=== PATIENT | male | born 1955 | race African-American/Black ===

== ENCOUNTER 2020-07-20 00:03 | Emergency (ER) | payer MEDICARE, OTHER ==
[~2020-07-20] VITALS: Ht 175.3 cm; Wt 68.0 kg
[2020-07-20 00:05] VITALS: BP 138/79
--- NOTE | 2020-07-20 01:41 | NUR ---
PT DISCHARGED TO ER WAITING ROOM AWAITING BLUEPRINT MAKER IN AM.
--- NOTE | 2020-07-20 11:02 | NUR ---
"SS Consult: SS consult requested for homelessness. The pt. is a 65-year old Black male. SW met with pt. bedside. The pt. appears unkempt and is alert & oriented x 4. The pt. is pleasant and remained calm & cooperative throughout interview. Patent denies SI/HI and denies hallucinations. Patients thought process is WNL. Per pt. he has been diagnosed with Schizoaffective Disorder and is ALSO manic Depressive and is currently not on medication. Patient stated that he has been experiencing homelessness since February 2020. Patient stated that he last resided at [facility] [[address] [place] [address] ; ]. Per patients request SW called [facility] and asked if pt. could be accepted back to facility. Per Intake they will consult and give SW a call back. Patient is wearing a bracelet that provides his brother, Hugo Tilley [phone] information and also states patient has dementia and may be come agitated. Pt. stated that his sister, Annel Tilley [phone] is his payee and requested se be called for his placement at a board & care. SW called Annel and provided collateral information. Per Annel patient was residing at [facility] [employer] [employer] [facility] [[address] [place] [address]] for about 10 years. However, as of 02/05/2020 the pt. left as he expressed not wanting to live there any longer, per Annel. Krunal confirmed that she is his payee and is has been difficult to place this pt. in permanent housing as pt. leaves every facility he is in temporarily or refuses help. Per Kathie th pt. does not have Dementia bu he does have aHx. of mental health. Annel requested that this pt. be seen by crisis for possible hold. MARLEN informed Annel that the pt. does not meet criteria for 5150. MARLEN consulted with SS Director, Catrachita Mcgee who also confirmed pt. does not meet criteria. Annel updated and she was agreeable. Plan: SW provided patient with longterm placement at [facility] [[address] [address]; [phone]] and patient is agreeable. Patient provided with bus pass, hot meal and clothing as needed. Patient signed homeless waiver. SW provided address of longterm to pt.s sister and informed her of D/C plan and she was agreeable. MARLEN provided patient with the following homeless resources and patient receptive: Substance Abuse resources provided included: [facility] Substance Abuse Self-Helpline ([facility]) ; [facility] [address] [facility]. [place] [address] ; [facility] [place] [address] [facility] [address] ; [facility] [address] [facility] [place] [address] ; [facility] [address] [facility] [id number] ; [facility] [address] [facility] [address] ; [facility] [address] [facility] [id number] ; [facility] Substance Abuse Helpline([facility] ; [facility] ; [facility] [place]; [facility] [place]; [facility] [place]; [place] [facility]; [facility] [place] [facility]; [facility] [place]; [facility], [facility]. [place]; Alcoholics Anonymous -SFV; [place]-Xrme-Zwmdgbv ; Marijuana Anonymous -[facility]V; Narcotics Anonymous www.na.org; Year-round shelters: [facility] [address] [place] [address] ; [facility] [place] [address] [place] [place] [address]; [facility] [address] [facility] [address] Winter Shelters: Shiramercedes Wang Emeli Provider: Milind of [place] Address: [address], [address] # of Beds: 47 Population Served: [facility] 6 | [facility] Jolie Nguyen [place] Provider: [facility] Address: [address], [address] # of Beds: 66 Population Served: [facility] [place] Provider: First to Serve Address: [address] [facility], [address] # of Beds: 56 Population Served: [facility] Mikhail [place] Provider: [facility] Address: [address] [place] [address], [address] # of Beds: 49 Population Served: [facility] 8 | [facility] Provider: First to Serve Address: [address] [facility], [address] # of Beds: 37 Population Served: [facility] Hygiene: [facility]: [address] [facility] ; [place] [facility] [address] [facility] ; [facility] [address] [facility] . Food Resources: [place] [facility] at [facility]- [address] [facility]; Meet Each Need with [place]ign[facility] ([facility]) [address] [place]; [facility] [address] [facility]; [facility] [address] [facility]. Mental Health resources provided: [facility] [address] [facility] [place] [address] ; [facility] [place] [address] [facility] [address], [place], [place] [id number] ; Estefania Mackey [facility] [address] [place] [address] ; [facility] [place], [place] [address] Healthcare Clinics: [facility] [address] [facility], [address] [place]. [place] ; [facility] [address] [facility] [address] [place] [address]; [facility] [address] [facility] [address] [phone]"
--- NOTE | 2020-07-20 11:11 | NUR ---
social service speaking to patient
== END 2020-07-20 01:43 | disposition home or self-care (01) ==
LOC: ER 00:10
DX: Z02.89 Encounter for other administrative examinations (principal); Z59.0 Homelessness